=== PATIENT | male | born 1960 | race Caucasian/White ===

== ENCOUNTER → 2024-05-25 11:23 | Outpatient (REF) | payer OTHER, SELFPAY | LOC: RAD 11:23 | PROVIDERS: ATTENDING PHYSICIAN Physician Assistant | DX: M51.362 Other intervertebral disc degeneration, lumbar region with discogenic back pain and lower extremity pain (principal); R20.2 Paresthesia of skin; M25.551 Pain in right hip; M25.552 Pain in left hip | CPT/HCPCS: 72110; 73523 ==

== ENCOUNTER → 2024-06-16 06:40 | Outpatient (REF) | payer OTHER, SELFPAY | LOC: PAVMRI 06:40 | PROVIDERS: ATTENDING PHYSICIAN Physical Medicine & Rehabilitation; FAMILY PHYSICIAN Family Medicine | DX: M54.16 Radiculopathy, lumbar region (principal) | CPT/HCPCS: 72148 ==